=== PATIENT | female | born 1960 | race Caucasian/White ===

== ENCOUNTER 2017-06-30 12:58 | Emergency (ER) | payer BC ==
[~2017-06-30] VITALS: Ht 165.1 cm; Wt 52.2 kg
[~2017-06-30 12:58] MED LIST: COUMADIN3 MG PO; LOPRESSOR25 MG PO
[2017-06-30 19:03] VITALS: BP 132/75
== END 2017-06-30 15:30 | disposition short-term general hospital (02) ==
LOC: FSED 12:58
DX: G45.3 Amaurosis fugax (principal)
CPT/HCPCS: 70450; 80048; 82553; 84484; 85025; 85610; 99284